=== PATIENT | female | born 1985 | race Caucasian/White ===

== ENCOUNTER 2020-07-11 16:39 | Emergency (ER) | payer OTHER ==
[~2020-07-11] VITALS: Ht 170.2 cm; Wt 90.7 kg
[2020-07-11] MEDS ORDERED: DESYREL150 MG PO (16:57)
[2020-07-11] MEDS ORDERED: PROZAC40 MG PO (16:57)
[2020-07-11] MEDS ORDERED: NORCO5 PO (17:55)
[2020-07-11] MEDS ORDERED: IBUPROFEN 600600 M1 PO (17:55)
[2020-07-11 18:05] VITALS: BP 171/107
== END 2020-07-11 18:05 | disposition home or self-care (01) ==
LOC: M.ERS 16:39
DX: M25.561 Pain in right knee (principal); F41.9 Anxiety disorder, unspecified; F32.9 Major depressive disorder, single episode, unspecified; I10 Essential (primary) hypertension; Z90.711 Acquired absence of uterus with remaining cervical stump; Z85.830 Personal history of malignant neoplasm of bone; Z79.899 Other long term (current) drug therapy; Z88.0 Allergy status to penicillin; W22.8XXA Striking against or struck by other objects, initial encounter; Y93.E9 Activity, other interior property and clothing maintenance; Y92.238 Other place in hospital as the place of occurrence of the external cause; Y99.0 Civilian activity done for income or pay

== ENCOUNTER → 2020-07-18 | Outpatient (CLI) | payer OTHER ==
[~2020-07-18] MED LIST: DESYREL150 MG PO; IBUPROFEN 600600 M1 PO; NORCO5 PO; PROZAC40 MG PO
== END ==
LOC: M.CT 12:39
PROVIDERS: ATTEND Nurse Practitioner Family
DX: M85.861 Other specified disorders of bone density and structure, right lower leg (principal)